=== PATIENT | male | born 2000 | race Caucasian/White ===

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

== ENCOUNTER 2021-01-01 09:05 | Emergency (ER) | payer OTHER ==
[2021-01-01 09:56] LABS: HEMOGLOBIN 16.2 gm/dl (14.0-17.5); RED BLOOD COUNT 5.25 M/UL (4.20-5.50); WHITE BLOOD COUNT 7.6 K/UL (4.5-11.0)
[2021-01-01 10:25] LABS: BUN/CREATININE RATIO 14 (0-10)
[2021-01-01] MEDS ORDERED: IBUPROFEN600 MG PO (11:06)
[2021-01-01] MEDS ORDERED: LIDOCAINE1 EAC1 TP (11:06)
== END 2021-01-01 11:27 | disposition home or self-care (01) ==
LOC: ER1 09:05
PROVIDERS: Emergency Medicine
DX: S02.2XXA Fracture of nasal bones, initial encounter for closed fracture (principal); S20.211A Contusion of right front wall of thorax, initial encounter; F17.210 Nicotine dependence, cigarettes, uncomplicated; V47.9XXA Unspecified car occupant injured in collision with fixed or stationary object in traffic accident, initial encounter; Y92.410 Unspecified street and highway as the place of occurrence of the external cause
CPT/HCPCS: 36415; 70450; 70486; 71250; 72125; 80048; 85025; 93005; 96374; 99284; J1885

== ENCOUNTER 2021-05-06 09:00 | Emergency (ER) | payer OTHER ==
[~2021-05-06 09:00] MED LIST: IBUPROFEN600 MG PO; LIDOCAINE1 EAC1 TP
== END 2021-05-06 09:39 | disposition home or self-care (01) ==
LOC: ER1 09:00
DX: M79.644 Pain in right finger(s) (principal); Z88.0 Allergy status to penicillin; Z88.8 Allergy status to other drugs, medicaments and biological substances; F17.210 Nicotine dependence, cigarettes, uncomplicated
CPT/HCPCS: 99283